=== PATIENT | male | born 1960 | race Caucasian/White ===

== ENCOUNTER 2016-11-24 04:32 | Inpatient (IN) | payer OTHER, MEDICARE ==
[2016-11-24 06:04] LABS: ABSOLUTE BASOPHILS # (AUTO) 0.1 10^3/uL (0.0-0.2); ABSOLUTE EOSINOPHILS # (AUTO) 0.2 10^3/uL (0.0-0.6); ABSOLUTE LYMPHOCYTES (AUTO) 0.9 10^3/uL (0.5-4.7); ABSOLUTE MONOCYTES (AUTO) 1.2 10^3/uL (0.1-1.4); ABSOLUTE NEUT (AUTO) 10.2 10^3/uL (1.7-8.2); BASOPHILS % (AUTO) 0.5 % (0-2); EOSINOPHILS % (AUTO) 1.8 % (0-6); HEMATOCRIT 37.8 % (37.9-51.0); HEMOGLOBIN 12.7 g/dL (13.5-17.0); HGB HCT DIFFERENCE 0.3; LYMPHOCYTES % (AUTO) 7.3 % (13-45); MEAN CORPUSCULAR HEMOGLOBIN 29.3 pg (27.0-33.4); MEAN CORPUSCULAR HGB CONC 33.5 g/dL (32.0-36.0); MEAN CORPUSCULAR VOLUME 88 fl (80-97); MONOCYTES % (AUTO) 9.5 % (3-13); RED BLOOD COUNT 4.32 10^6/uL (4.35-5.55); RED CELL DISTRIBUTION WIDTH 13.8 % (11.5-14.0); SEGMENTED NEUTROPHILS % (AUTO) 80.9 % (42-78); WHITE BLOOD COUNT 12.6 10^3/uL (4.0-10.5)
[2016-11-24 06:07] LABS: VENOUS BLOOD BASE EXCESS -3.1 mmol/L; VENOUS BLOOD HCO3 24.7 mmol/L (20-32); VENOUS BLOOD PH 7.26 (7.30-7.42)
[2016-11-24 06:14] LABS: ALANINE AMINOTRANSFERASE 39 U/L (21-72); ALBUMIN 3.9 g/dL (3.5-5.0); ALKALINE PHOSPHATASE 83 U/L (38-126); ANION GAP 16 (5-19); ASPARTATE AMINO TRANSFERASE 53 U/L (17-59); BILIRUBIN,DIRECT 0.6 mg/dL (0.0-0.4); BILIRUBIN,TOTAL 0.8 mg/dL (0.2-1.3); BLOOD UREA NITROGEN 69 mg/dL (7-20); CALCIUM 8.3 mg/dL (8.4-10.2); CARBON DIOXIDE 25 mmol/L (22-30); CHLORIDE 95 mmol/L (98-107); CREATININE RESULT 5.58 mg/dL (0.52-1.25); GLUCOSE 110 mg/dL (75-110); TOTAL PROTEIN 7.1 g/dL (6.3-8.2)
--- NOTE | 2016-11-24 06:22 | ER Document Report ---
ED Fall - General Mode of Arrival: Ambulatory Information source: Patient TRAVEL OUTSIDE OF THE [place] IN LAST 30 DAYS: No - HPI Occurred: Other - x2 days Where: Home Location of injury/pain: Foot - R, Neck Quality of pain: Achy, Sharp <RICHARD GOLDSMITH - Last Filed: 11/25/16 06:07> <TAB HESTER - Last Filed: 11/30/16 22:48> - General Chief Complaint: Syncope Stated Complaint: POSSIBLE HYPERTENSION Time Seen by Provider: 11/24/16 06:01 Notes: Patient is a 56-year-old male who presents to the emergency department today with complaints of a syncopal episode at home 2 days ago. Patient states that he believes he fell because he was hypotensive. Patient states that he has had falls in the past with a low blood pressure. Patient states his medication has not been adjusted in the last few days but that he was having a problem with very high blood pressure and with the medications he is now on his blood pressure seems to sometimes bottom out. Patient states he believes he was on the ground for 2 hours. Patient complains of right foot pain and neck pain. Patient complains of back pain as well which is chronic; patient denies any new pain since the fall in his back. (RICHARD GOLDSMITH) - Related data Allergies/Adverse Reactions: strawberry [[place]] Allergy (Verified 10/29/15 07:18) tomato [Tomato] Allergy (Verified 10/29/15 07:18) Home Medications: Current Home Medications Allopurinol [Zyloprim 100 mg Tablet] 100 mg PO DAILY 11/24/16 [History] Aspirin [Aspirin EC] 81 mg PO DAILY 11/24/16 [History] Clonidine HCl [Catapres 0.2 mg Tablet] 0.2 mg PO Q12 11/24/16 [History] Diazepam [Valium 5 mg Tablet] 5 mg PO BIDP PRN 11/24/16 [History] Gabapentin [Neurontin 300 mg Capsule] 300 mg PO Q8 11/24/16 [History] Oxycodone HCl [Oxycodone HCl ER] 15 mg PO 5XD 11/24/16 [History] Pravastatin Sodium [Pravachol] 80 mg PO QHS 11/24/16 [History] Venlafaxine HCl [Effexor Xr] 150 mg PO BID 11/24/16 [History] Past Medical History - General Information source: Patient, [facility] - Social History Smoking Status: Smoker,Current Status Unk Frequency of alcohol use: None Drug Abuse: None Lives with: Family Family History: Reviewed & Not Pertinent - Past Medical History Cardiac Medical History: Reports: Hx Heart Attack - X 2, Hx Hypercholesterolemia , Hx Hypertension Musculoskeltal Medical History: Reports Hx Gout Skin Medical History: Reports Hx Cellulitis Psychiatric Medical History: Reports: Hx Depression, Hx Post Traumatic Stress Disorder Past Surgical History: Reports: Hx Orthopedic Surgery - back surgery - Immunizations Hx Diphtheria, Pertussis, Tetanus Vaccination: Yes Hx Pneumococcal Vaccination: 05/31/09 <RICHARD GOLDSMITH - Last Filed: 11/25/16 06:07> Review of Systems - Review of Systems Constitutional: No symptoms reported EENT: No symptoms reported Cardiovascular: See HPI, Syncope, Other - hypotension Respiratory: No symptoms reported Gastrointestinal: No symptoms reported Genitourinary: No symptoms reported Male Genitourinary: No symptoms reported Musculoskeletal: See HPI, Back pain - complains of chronic back pain but states there is nothing new since the fall, Joint pain - right foot, Neck pain Skin: No symptoms reported Hematologic/Lymphatic: No symptoms reported Neurological/Psychological: No symptoms reported -: Yes All other systems reviewed and negative <RICHARD GOLDSMITH - Last Filed: 11/25/16 06:07> Physical Exam <RICHARD GOLDSMITH - Last Filed: 11/25/16 06:07> <TAB HESTER - Last Filed: 11/30/16 22:48> - Vital signs Vitals: Temp Pulse Resp BP Pulse Ox 98.3 F 96 20 88/43 L 94 11/24/16 05:09 11/24/16 05:09 11/24/16 05:09 11/24/16 05:09 11/24/16 05:09 - Notes Notes: Physical Exam: General: Alert, appears well. HEENT: Normocephalic. Atraumatic. PERRL. Extraocular movements intact. Oropharynx clear. Neck: Supple. Posterior cervical musculature tenderness with palpation. No midline tenderness. Respiratory: No respiratory distress. Clear and equal breath sounds bilaterally. Cardiovascular: Regular rate and rhythm. Abdominal: Normal Inspection. Non-tender. No distension. Normal Bowel Sounds. Back: Non-tender. No deformity or step off. Extremities: Moves all four extremities. Upper extremities: Normal inspection. Normal ROM. Lower extremities: Mild diffuse tenderness with palpation of the right foot. Neurological: Normal cognition. AAOx4. Normal speech. Psychological: Normal affect. Normal Mood. Skin: Warm. Dry. Normal color. (RICHARD GOLDSMITH) Course - Laboratory Result Diagrams: 11/25/16 04:45 11/24/16 05:45 <RICHARD GOLDSMITH - Last Filed: 11/25/16 06:07> - Laboratory Result Diagrams: 11/25/16 04:45 11/25/16 04:45 <TAB HESTER - Last Filed: 11/30/16 22:48> - Re-evaluation Re-evalutation: 11/24/16 10:05 Presents emerged from chief plan of fall yesterday states he lost conscious for 2 hours right foot pain dizzy and wheezing. Patient has multiple medical problems and he had a couple episodes and was passed out the past. Says that they have been trying to manage his elevated blood pressure and it has dropped a couple times. On ED arrival blood pressure 99/69 O2 sat of 100% 92 heart rate with a sinus rhythm on EKG. He is afebrile with a GCS of 15 and no neurological deficits. He complains of headache and neck pain which I did a CT of the head pupils are expiratory negative. Full cardiac examination and workup nonacute however he does have a BUN and creatinine of 69 and 5.58 with a normal potassium and he reports normal urine output and there is some blood in the urine but no infection. Last BUN and creatinine was from 12/30/2015 showing 23 and 1.10. This time I given him IV fluids and admit him to the hospital I spoke to Dr. Richards to do a further assessment and evaluation (TAB HESTER) - Vital Signs Vital signs: Temp Pulse Resp BP Pulse Ox 98.2 F 70 17 120/64 99 11/25/16 08:44 11/25/16 08:44 11/25/16 08:44 11/25/16 08:44 11/25/16 08:44 - Laboratory Laboratory results interpreted by me: 11/24/16 11/24/16 11/24/16 05:45 05:45 05:45 WBC 12.6 H RBC 4.32 L Hgb 12.7 L Hct 37.8 L Seg Neutrophils % 80.9 H Lymphocytes % 7.3 L Absolute Neutrophils 10.2 H VBG pH 7.26 L Sodium 136.0 L Chloride 95 L BUN 69 H Creatinine 5.58 H Est GFR ( Amer) 13 L Est GFR (Non-Af Amer) 11 L POC Glucose Calcium 8.3 L Direct Bilirubin 0.6 H Urine Protein Urine Blood 11/24/16 11/24/16 06:36 07:49 WBC RBC Hgb Hct Seg Neutrophils % Lymphocytes % Absolute Neutrophils VBG pH Sodium Chloride BUN Creatinine Est GFR ( Amer) Est GFR (Non-Af Amer) POC Glucose 111 H Calcium Direct Bilirubin Urine Protein 30 H Urine Blood MODERATE H - EKG Interpretation by Me Additional EKG results interpreted by me: 11/24/16 10:07 EKG interpreted by myself to reveal normal sinus rhythm at [address] segment elevation or depression (TAB HESTER) Critical Care Note - Critical Care Note Total time excluding time spent on procedures (mins): 65 <TAB HESTER - Last Filed: 11/30/16 22:48> Discharge <RICHARD GOLDSMITH - Last Filed: 11/25/16 06:07> - Discharge Admitting Provider: Hospitalist Unit Admitted: I[facility]U <TAB HESTER - Last Filed: 11/30/16 22:48> - Discharge Clinical Impression: acute syncope, acute renal failure Condition: Stable Disposition: ADMITTED INPATIENT Scribe Attestation: 11/24/16 10:07 I personally performed the services described in the documentation reviewed the documentation recorded by my scribe in my presence and it accurately and completely records my words and actions (TAB HESTER) Scribe Documentation - Scribe Written by Yuriye:: Elena Raza, 11/24/2016 1014 acting as scribe for :: Joshua <RICHARD GOLDSMITH - Last Filed: 11/25/16 06:07>
--- NOTE | 2016-11-24 06:22 | RADIOLOGY REPORT (SQ) ---
EXAM DESCRIPTION: CHEST SINGLE VIEW COMPLETED DATE/TIME: 11/24/2016 6:07 am REASON FOR STUDY: syncope COMPARISON: 11/19/2013. EXAM PARAMETERS: NUMBER OF VIEWS: One view. TECHNIQUE: Single frontal radiographic view of the chest acquired. RADIATION DOSE: NA LIMITATIONS: None. FINDINGS: LUNGS AND PLEURA: No opacities, masses or pneumothorax. No pleural effusion. Prominent in terstitium. MEDIASTINUM AND HILAR STRUCTURES: No masses. Contour normal. HEART AND VASCULAR STRUCTURES: Heart normal in size. Normal vasculature. BONES: No acute findings. HARDWARE: None in the chest. OTHER: No other significant finding. IMPRESSION: No acute cardiopulmonary findings. TECHNICAL DOCUMENTATION: JOB ID: [id number]
[2016-11-24 06:38] LABS: PROTHROMBIN TIME 15.3 SEC (11.4-15.4)
--- NOTE | 2016-11-24 07:53 | EKG REPORT ---
SEVERITY:- NORMAL ECG - SINUS RHYTHM : Confirmed by: Souleymane Farris 24-Nov-2016 07:52:24
--- NOTE | 2016-11-24 08:26 | RADIOLOGY REPORT (SQ) ---
EXAM DESCRIPTION: CT HEAD WITHOUT COMPLETED DATE/TIME: 11/24/2016 8:15 am REASON FOR STUDY: fall ? loc COMPARISON: 10/29/2015 TECHNIQUE: Axial images acquired through the brain without intravenous contrast. Images reviewed wi th bone, brain and subdural windows. Images stored on PACS. All CT scanners at this facility use dose modulation, iterative reconstruction, and/or weight based d osing when appropriate to reduce radiation dose to as low as reasonably achievable (ALARA). [facility]: Dose Right [facility]: CareDose [facility]: Dose Right [facility]: Teradose 4D [facility]: Smart [employer] RADIATION DOSE: Up-to-date CT equipment and radiation dose reduction techniques were employed. CTDIv ol: 64.6 mGy. DLP: 1163 mGy-cm. mGy. LIMITATIONS: None. FINDINGS: VENTRICLES: Normal size and contour. CEREBRUM: No masses. No hemorrhage. No midline shift. Normal brown/white matter differentiation. N o evidence for acute infarction. CEREBELLUM: No masses. No hemorrhage. No alteration of density. No evidence for acute infarction. EXTRAAXIAL SPACES: No fluid collections. No masses. ORBITS AND GLOBE: No intra- or extraconal masses. Normal contour of globe without masses. CALVARIUM: No fracture. PARANASAL SINUSES: No fluid or mucosal thickening. SOFT TISSUES: No mass or hematoma. OTHER: No other significant finding. IMPRESSION: NORMAL BRAIN CT WITHOUT CONTRAST. TECHNICAL DOCUMENTATION: JOB ID: [id number] Quality ID # [id number]: Final reports with documentation of one or more dose reduction techniques (e.g., Au tomated exposure control, adjustment of the mA and/or kV according to patient size, use of iterative reconstruction technique) 2010 [employer]- All Rights Reserved
--- NOTE | 2016-11-24 08:28 | RADIOLOGY REPORT (SQ) ---
EXAM DESCRIPTION: CT CERVICAL SPINE WITHOUT COMPLETED DATE/TIME: 11/24/2016 8:15 am REASON FOR STUDY: fall loc COMPARISON: 10/29/2015 TECHNIQUE: Axial images acquired through the cervical spine without intravenous contrast. Images re viewed with lung, soft tissue and bone windows. Reconstructed coronal and sagittal MPR images review ed. Images stored on PACS. All CT scanners at this facility use dose modulation, iterative reconstruction, and/or weight based d osing when appropriate to reduce radiation dose to as low as reasonably achievable (ALARA). [facility]: Dose Right [facility]: CareDose [facility]: Dose Right [facility]: Teradose 4D [facility]: Smart [employer] RADIATION DOSE: Up-to-date CT equipment and radiation dose reduction techniques were employed. CTDIv ol: 22.6 - 32.5 mGy. DLP: 913 mGy-cm. mGy. LIMITATIONS: None. FINDINGS: ALIGNMENT: Anatomic. MINERALIZATION: Normal. VERTEBRAL BODIES: No fractures or dislocation. DISCS: Multilevel disc space narrowing with osteophytes. FACETS, LATERAL MASSES, POSTERIOR ELEMENTS: Facet arthropathy. No fractures. No dislocation. No ac corine findings. HARDWARE: None in the spine. VISUALIZED RIBS: No fractures. LUNG APICES AND SOFT TISSUES: No significant or acute findings. OTHER: No other significant finding. IMPRESSION: CHRONIC DEGENERATIVE CHANGES. NO ACUTE FINDINGS. TECHNICAL DOCUMENTATION: JOB ID: [id number] Quality ID # [id number]: Final reports with documentation of one or more dose reduction techniques (e.g., Au tomated exposure control, adjustment of the mA and/or kV according to patient size, use of iterative reconstruction technique) 2010 [employer]- All Rights Reserved
--- NOTE | 2016-11-24 08:42 | RADIOLOGY REPORT (SQ) ---
EXAM DESCRIPTION: ANKLE RIGHT COMPLETE COMPLETED DATE/TIME: 11/24/2016 8:28 am REASON FOR STUDY: fall pain COMPARISON: None. NUMBER OF VIEWS: Three views. TECHNIQUE: AP, lateral, and oblique radiographic images acquired of the right ankle. LIMITATIONS: None. FINDINGS: MINERALIZATION: Normal. BONES: No acute fracture or dislocation. No worrisome bone lesions. JOINTS: Ankle mortise intact. SOFT TISSUES: No soft tissue swelling. No foreign body. OTHER: No other significant finding. IMPRESSION: No acute fractures identified. TECHNICAL DOCUMENTATION: JOB ID: [id number] [employer]- All Rights Reserved
--- NOTE | 2016-11-24 08:53 | RADIOLOGY REPORT (SQ) ---
EXAM DESCRIPTION: FOOT RIGHT COMPLETE COMPLETED DATE/TIME: 11/24/2016 8:28 am REASON FOR STUDY: fall pain COMPARISON: None. NUMBER OF VIEWS: Three views. TECHNIQUE: AP, lateral and oblique radiographic images acquired of the right foot. LIMITATIONS: None. FINDINGS: MINERALIZATION: Normal. BONES: No acute fracture or dislocation. No worrisome bone lesions. JOINTS: No effusions. SOFT TISSUES: No metallic foreign bodies. OTHER: No other significant finding. IMPRESSION: No acute fractures identified. TECHNICAL DOCUMENTATION: JOB ID: [id number] [employer]- All Rights Reserved
[2016-11-24 08:55] LABS: AMORPHOUS SEDIMENT,URINE TRACE /HPF; APPEARANCE,URINE SLIGHTLY-CLOUDY; BILIRUBIN,URINE NEGATIVE (NEGATIVE); GLUCOSE, URINE NEGATIVE (NEGATIVE); KETONES,URINE NEGATIVE (NEGATIVE); LEUKOCYTE ESTERASE,URINE NEGATIVE (NEGATIVE); NITRITE,URINE NEGATIVE (NEGATIVE); PROTEIN,URINE 30 mg/dL (NEGATIVE); URINE SPECIFIC GRAVITY 1.012; UROBILINOGEN,URINE NEGATIVE mg/dL (<2.0)
[2016-11-24] MEDS ORDERED: NORMAL SALINE 1000 ML 1,000 ML IV ONE ×2 (10:03→17:37)
[2016-11-24] MEDS ORDERED: NORMAL SALINE 1000 ML 1,000 ML IV PRN (10:43)
[2016-11-24] MEDS ORDERED: ONDANSETRON HCL INJ/PF 4 MG/2 ML SDV IV PRN (10:43)
[2016-11-24] MEDS ORDERED: ACETAMINOPHEN 325 MG TABLET PO PRN (10:43)
[2016-11-24] MEDS ORDERED: DIAZEPAM 5 MG TABLET PO PRN (10:47)
--- NOTE | 2016-11-24 10:54 | PDOC H&P ---
History of Present Illness Admission Date/PCP: 11/24/16 10:10 JOSE MANUEL LOMBARDI MD History of Present Illness: Patient is a 56-year-old male who presents to the emergency department today with complaints of a syncopal episode at home 2 days ago. Patient states that he believes he fell because he was hypotensive. Patient states that he has had falls in the past with a low blood pressure. Patient states his medication has not been adjusted in the last few days but that he was having a problem with very high blood pressure and with the medications he is now on his blood pressure seems to sometimes bottom out. Patient states he believes he was on the ground for 2 hours. Patient complains of right foot pain and neck pain. Patient complains of back pain as well which is chronic; patient denies any new pain since the fall in his back. Review of previous medications indicate that patient's creatinine was 1.10 on 12/30/2015. Medications have not been reconciled. Past Medical History Cardiac Medical History: Reports: Myocardial Infarction - X 2, Hyperlipidema, Hypertension Musculoskeltal Medical History: Reports: Gout Psychiatric Medical History: Reports: Depression, Post Traumatic Stress Disorder Past Surgical History Past Surgical History: Reports: Orthopedic Surgery - back surgery Social History Information Source: Patient Lives with: Family Smoking Status: Current Every Day Smoker Frequency of Alcohol Use: Rare Hx Recreational Drug Use: No - Advance Directive Resuscitation Status: Full Code Family History Family History: Hypertension Parental Family History Reviewed: Yes Children Family History Reviewed: Yes Sibling(s) Family History Reviewed.: Yes Medication/Allergy Allergies/Adverse Reactions: strawberry [[place]] Allergy (Verified 10/29/15 07:18) tomato [Tomato] Allergy (Verified 10/29/15 07:18) Review of Systems Constitutional: ABSENT: chills, fever(s), headache(s), weight gain, weight loss Eyes: ABSENT: visual disturbances Ears: ABSENT: hearing changes Cardiovascular: ABSENT: chest pain, dyspnea on exertion, edema, orthropnea, palpitations Respiratory: ABSENT: cough, hemoptysis Gastrointestinal: ABSENT: abdominal pain, constipation, diarrhea, hematemesis, hematochezia, nausea, vomiting Genitourinary: ABSENT: dysuria, hematuria Musculoskeletal: ABSENT: joint swelling Integumentary: ABSENT: rash, wounds Neurological: PRESENT: dizziness, syncope. ABSENT: abnormal gait, abnormal speech, confusion, focal weakness Psychiatric: ABSENT: anxiety, depression, homidical ideation, suicidal ideation Endocrine: ABSENT: cold intolerance, heat intolerance, polydipsia, polyuria Hematologic/Lymphatic: ABSENT: easy bleeding, easy bruising Physical Exam Vital Signs: Temp Pulse Resp BP Pulse Ox 98.3 F 96 13 109/60 100 11/24/16 05:09 11/24/16 05:09 11/24/16 08:33 11/24/16 09:00 11/24/16 09:01 PHYSICAL EXAM: GENERAL: Appears well, no acute distress HEENT: Normocephalic, no scleral icterus, conjunctiva clear, EOEM intact, PERRLA , moist mucous membranes NECK: trachea midline, no thyromegally RESPIRATORY: Clear to auscultation, no wheezes/rhonchi CARDIAC: Regular rate and rhythm, no murmur/keena/rub ABDOMEN: Soft, no distension, no tenderness, no guarding, normal bowel sounds, negative Andre sign RECTAL: deferred : deferred EXTREMITIES: No edema, cyanosis, clubbing MUSCULOSKELETAL: No joint swelling or deformity VASCULAR: normal peripheral pulses NEUROLOGIC: Alert, oriented to person/place/time, normal speech, cranial nerves grossly intact, 5/5 strength in all extremities, tactile sensation intact in all extremities SKIN: No rash, no wounds, no worrisome skin lesions PSYCHIATRIC: Normal mood, normal affect Results Laboratory Results: Labs- All tests 24 hr 11/24/16 11/24/16 11/24/16 05:45 05:45 05:45 WBC 12.6 H RBC 4.32 L Hgb 12.7 L Hct 37.8 L MCV 88 MCH 29.3 MCHC 33.5 RDW 13.8 Plt Count 226 Seg Neutrophils % 80.9 H Lymphocytes % 7.3 L Monocytes % 9.5 Eosinophils % 1.8 Basophils % 0.5 Absolute Neutrophils 10.2 H Absolute Lymphocytes 0.9 Absolute Monocytes 1.2 Absolute Eosinophils 0.2 Absolute Basophils 0.1 PT 15.3 INR 1.13 VBG pH VBG pCO2 VBG HCO3 VBG Base Excess Sodium 136.0 L Potassium 4.0 Chloride 95 L Carbon Dioxide 25 Anion Gap 16 BUN 69 H Creatinine 5.58 H Est GFR ( Amer) 13 L Est GFR (Non-Af Amer) 11 L Glucose 110 POC Glucose Lactic Acid Calcium 8.3 L Total Bilirubin 0.8 Direct Bilirubin 0.6 H Indirect Bilirubin Not Reportable Neonat Total Bilirubin Not Reportable AST 53 ALT 39 Alkaline Phosphatase 83 Total Protein 7.1 Albumin 3.9 Urine Color Urine Appearance Urine pH Ur Specific [place] Urine Protein Urine Glucose (UA) Urine Ketones Urine Blood Urine Nitrite Urine Bilirubin Urine Urobilinogen Ur Leukocyte Esterase Urine WBC (Auto) Urine RBC (Auto) U Hyaline Cast (Auto) Urine Bacteria (Auto) Squamous Epi Cells Auto Amorphous Sediment Auto Urine Mucus (Auto) Urine Ascorbic Acid 11/24/16 11/24/16 11/24/16 05:45 05:45 06:36 WBC RBC Hgb Hct MCV MCH MCHC RDW Plt Count Seg Neutrophils % Lymphocytes % Monocytes % Eosinophils % Basophils % Absolute Neutrophils Absolute Lymphocytes Absolute Monocytes Absolute Eosinophils Absolute Basophils PT INR VBG pH 7.26 L VBG pCO2 56.0 VBG HCO3 24.7 VBG Base Excess -3.1 Sodium Potassium Chloride Carbon Dioxide Anion Gap BUN Creatinine Est GFR ( Amer) Est GFR (Non-Af Amer) Glucose POC Glucose 111 H Lactic Acid 1.0 Calcium Total Bilirubin Direct Bilirubin Indirect Bilirubin Neonat Total Bilirubin AST ALT Alkaline Phosphatase Total Protein Albumin Urine Color Urine Appearance Urine pH Ur Specific [place] Urine Protein Urine Glucose (UA) Urine Ketones Urine Blood Urine Nitrite Urine Bilirubin Urine Urobilinogen Ur Leukocyte Esterase Urine WBC (Auto) Urine RBC (Auto) U Hyaline Cast (Auto) Urine Bacteria (Auto) Squamous Epi Cells Auto Amorphous Sediment Auto Urine Mucus (Auto) Urine Ascorbic Acid 11/24/16 07:49 WBC RBC Hgb Hct MCV MCH MCHC RDW Plt Count Seg Neutrophils % Lymphocytes % Monocytes % Eosinophils % Basophils % Absolute Neutrophils Absolute Lymphocytes Absolute Monocytes Absolute Eosinophils Absolute Basophils PT INR VBG pH VBG pCO2 VBG HCO3 VBG Base Excess Sodium Potassium Chloride Carbon Dioxide Anion Gap BUN Creatinine Est GFR ( Amer) Est GFR (Non-Af Amer) Glucose POC Glucose Lactic Acid Calcium Total Bilirubin Direct Bilirubin Indirect Bilirubin Neonat Total Bilirubin AST ALT Alkaline Phosphatase Total Protein Albumin Urine Color YELLOW Urine Appearance SLIGHTLY-CLOUDY Urine pH 5.0 Ur Specific [place] 1.012 Urine Protein 30 H Urine Glucose (UA) NEGATIVE Urine Ketones NEGATIVE Urine Blood MODERATE H Urine Nitrite NEGATIVE Urine Bilirubin NEGATIVE Urine Urobilinogen NEGATIVE Ur Leukocyte Esterase NEGATIVE Urine WBC (Auto) 5 Urine RBC (Auto) 1 U Hyaline Cast (Auto) 18 Urine Bacteria (Auto) TRACE Squamous Epi Cells Auto <1 Amorphous Sediment Auto TRACE Urine Mucus (Auto) RARE Urine Ascorbic Acid NEGATIVE EKG Comments: Normal sinus rhythm. Impressions: Chest X-Ray 11/24/16 05:34 IMPRESSION: No acute cardiopulmonary findings. Cervical Spine CT 11/24/16 06:22 IMPRESSION: CHRONIC DEGENERATIVE CHANGES. NO ACUTE FINDINGS. Head CT 11/24/16 06:22 IMPRESSION: NORMAL BRAIN CT WITHOUT CONTRAST. Ankle X-Ray 11/24/16 06:23 IMPRESSION: No acute fractures identified. Foot X-Ray 11/24/16 06:23 IMPRESSION: No acute fractures identified. Assessment & Plan - Diagnosis (1) Syncope Is this a current diagnosis for this admission?: YesPlan: Given patient's multiple blood pressure medications and current hypotension I would imagine that he has orthostatic syncope. I will hold blood pressure medicines. Monitor on telemetry. Check serial cardiac enzymes. Check orthostatic blood pressure readings. (2) Hypotension Is this a current diagnosis for this admission?: YesPlan: Hold blood pressure medications. IV fluids. (3) Acute kidney injury Is this a current diagnosis for this admission?: YesPlan: Hold blood pressure medicine. Administer IV fluids. Check renal ultrasound. Repeat labs in the morning. (4) Hypertension Is this a current diagnosis for this admission?: Yes - Time Time Spent: 50 to 70 Minutes Anticipated discharge: Home Within: within 72 hours
[2016-11-24 12:40] LABS: TROPONIN I < 0.012 ng/mL
[2016-11-24] MEDS: OXYCODONE HCL IR 5 MG TABLET PO PRN ×2 (13:30→21:20)
[2016-11-24] MEDS: HEPARIN SOD (PORCINE) 5,000 UNIT/ML 1 ML SYRINGE SUBCUT SCH ×2 (15:37→21:22)
[2016-11-24 18:26] LABS: TROPONIN I < 0.012 ng/mL
[2016-11-24] MEDS: NORMAL SALINE 1000 ML 1,000 ML IV PRN (21:10)
[2016-11-24] MEDS: VENLAFAXINE HCL 75 MG CAP.SR.24H PO SCH (21:21)
[2016-11-24] MEDS: GABAPENTIN 300 MG CAPSULE PO SCH (21:22)
[2016-11-24] MEDS ORDERED: ATORVASTATIN CALCIUM 20 MG TABLET PO SCH (22:00)
--- NOTE | 2016-11-24 23:14 | RADIOLOGY REPORT (SQ) ---
EXAM DESCRIPTION: U/S RETROPERITON LTD COMPLETED DATE/TIME: 11/24/2016 11:05 pm REASON FOR STUDY: ANIVAL COMPARISON: None. TECHNIQUE: Dynamic and static grayscale images acquired of the kidneys and bladder and recorded on P ACS. Additional selected color Doppler and spectral images recorded. LIMITATIONS: None. FINDINGS: RIGHT KIDNEY: Normal size. Normal echogenicity. No solid or suspicious masses. No h ydronephrosis. No calcifications. Large cyst is seen off the lateral mid pole measuring 8.0 x 8.6 x 6.1 cm LEFT KIDNEY: Normal size. Normal echogenicity. No solid or suspicious masses. No hydronephrosi s. No calcifications. Cyst seen off the mid pole medially measuring 2.4 x 2.0 x 1.6 cm. BLADDER: No masses. OTHER FINDINGS: No other significant finding. IMPRESSION: Bilateral renal cyst off the midpole. No nephrolithiasis. No hydronephrosis. TECHNICAL DOCUMENTATION: JOB ID: [id number] [employer]- All Rights Reserved
[2016-11-25 00:32] LABS: TROPONIN I < 0.012 ng/mL
[2016-11-25] MEDS: NORMAL SALINE 1000 ML 1,000 ML IV PRN (02:10)
[2016-11-25] MEDS: OXYCODONE HCL IR 5 MG TABLET PO PRN (03:55)
[2016-11-25] MEDS: GABAPENTIN 300 MG CAPSULE PO SCH (05:29)
[2016-11-25] MEDS: HEPARIN SOD (PORCINE) 5,000 UNIT/ML 1 ML SYRINGE SUBCUT SCH (05:30)
[2016-11-25 05:58] LABS: ABSOLUTE BASOPHILS # (AUTO) 0.1 10^3/uL (0.0-0.2); ABSOLUTE EOSINOPHILS # (AUTO) 0.3 10^3/uL (0.0-0.6); ABSOLUTE LYMPHOCYTES (AUTO) 1.4 10^3/uL (0.5-4.7); ABSOLUTE MONOCYTES (AUTO) 1.3 10^3/uL (0.1-1.4); ABSOLUTE NEUT (AUTO) 6.4 10^3/uL (1.7-8.2); BASOPHILS % (AUTO) 0.7 % (0-2); EOSINOPHILS % (AUTO) 3.2 % (0-6); HEMATOCRIT 34.4 % (37.9-51.0); HEMOGLOBIN 11.9 g/dL (13.5-17.0); HGB HCT DIFFERENCE 1.3; LYMPHOCYTES % (AUTO) 15.2 % (13-45); MEAN CORPUSCULAR HGB CONC 34.6 g/dL (32.0-36.0); MEAN CORPUSCULAR VOLUME 87 fl (80-97); MONOCYTES % (AUTO) 13.2 % (3-13); RED BLOOD COUNT 3.97 10^6/uL (4.35-5.55); SEGMENTED NEUTROPHILS % (AUTO) 67.7 % (42-78); WHITE BLOOD COUNT 9.5 10^3/uL (4.0-10.5)
[2016-11-25 06:14] LABS: ANION GAP 13 (5-19); CALCIUM 8.7 mg/dL (8.4-10.2); CARBON DIOXIDE 23 mmol/L (22-30); CHLORIDE 103 mmol/L (98-107); CREATINE KINASE 1344 U/L (55-170); CREATININE RESULT 1.98 mg/dL (0.52-1.25); GLUCOSE 94 mg/dL (75-110); POTASSIUM 3.8 mmol/L (3.6-5.0); SODIUM 138.7 mmol/L (137-145)
[2016-11-25 06:18] LABS: BLOOD UREA NITROGEN 40 mg/dL (7-20)
[2016-11-25 08:04] VITALS: BP 120/64
--- NOTE | 2016-11-25 08:09 | PDOC DISCHARGE SUMMARY ---
General - Admit/Disc Date/PCP Admission Date/Primary Care Provider: 11/24/16 10:44 JOSE MANUEL LOMBARDI MD Discharge Date: 11/25/16 - Discharge Diagnosis (1) Syncope Is this a current diagnosis for this admission?: Yes (2) Hypotension Is this a current diagnosis for this admission?: Yes (3) Acute kidney injury Is this a current diagnosis for this admission?: Yes (4) Hypertension Is this a current diagnosis for this admission?: Yes - Additional Information Resuscitation Status: Full Code Discharge Diet: Cardiac Discharge Activity: Activity As Tolerated Home Medications: Allopurinol [Zyloprim 100 mg Tablet] 100 mg PO DAILY 11/24/16 Aspirin [Aspirin EC] 81 mg PO DAILY 11/24/16 Clonidine HCl [Catapres 0.2 mg Tablet] 0.2 mg PO Q12 11/24/16 Diazepam [Valium 5 mg Tablet] 5 mg PO BIDP PRN 11/24/16 Gabapentin [Neurontin 300 mg Capsule] 300 mg PO Q8 11/24/16 Oxycodone HCl [Oxycodone HCl ER] 15 mg PO 5XD 11/24/16 Pravastatin Sodium [Pravachol] 80 mg PO QHS 11/24/16 Venlafaxine HCl [Effexor Xr] 150 mg PO BID 11/24/16 History of Present Illness Patient complains of: Passing out History of Present Illness: Patient is a 56-year-old male who presents to the emergency department today with complaints of a syncopal episode at home 2 days ago. Patient states that he believes he fell because he was hypotensive. Patient states that he has had falls in the past with a low blood pressure. Patient states his medication has not been adjusted in the last few days but that he was having a problem with very high blood pressure and with the medications he is now on his blood pressure seems to sometimes bottom out. Patient states he believes he was on the ground for 2 hours. Patient complains of right foot pain and neck pain. Patient complains of back pain as well which is chronic; patient denies any new pain since the fall in his back. Review of previous medications indicate that patient's creatinine was 1.10 on 12/30/2015. Hospital Course Hospital Course: Patient was admitted for evaluation of syncope and for treatment of acute kidney injury and hypotension. Patient's blood pressure medicines were discontinued on admission. He was given aggressive fluid resuscitation. Blood pressure normalized and kidney function greatly improved. Renal ultrasound showed no acute process, but bilateral renal cyst. Telemetry monitoring showed no dysrhythmia. CPK level improved. Troponin remained negative. Patient was discharged home in stable condition. He is advised to discontinue lisinopril/ HCT, Toprol-XL. He is to continue clonidine. He is to follow-up with his primary care provider as soon as possible for reevaluation and repeat lab work. Physical Exam Vital Signs: Temp Pulse Resp BP Pulse Ox 98.2 F 70 17 120/64 99 11/25/16 07:44 11/25/16 07:44 11/25/16 07:44 11/25/16 07:44 11/25/16 07:44 Intake & Output 11/24/16 11/25/16 11/26/16 06:59 06:59 06:59 Intake Total 4374 Balance 4374 Weight 105.2 kg Results Laboratory Results: 11/25/16 04:45 11/25/16 04:45 11/25/16 11/25/16 04:45 04:45 WBC 9.5 RBC 3.97 L Hgb 11.9 L Hct 34.4 L MCV 87 MCH 30.0 MCHC 34.6 RDW 14.0 Plt Count 174 Seg Neutrophils % 67.7 Lymphocytes % 15.2 Monocytes % 13.2 H Eosinophils % 3.2 Basophils % 0.7 Absolute Neutrophils 6.4 Absolute Lymphocytes 1.4 Absolute Monocytes 1.3 Absolute Eosinophils 0.3 Absolute Basophils 0.1 Sodium 138.7 Potassium 3.8 Chloride 103 Carbon Dioxide 23 Anion Gap 13 BUN 40 H D Creatinine 1.98 H Est GFR ( Amer) 42 L Est GFR (Non-Af Amer) 35 L Glucose 94 Calcium 8.7 11/24/16 11/24/16 11/24/16 12:02 12:02 17:46 Creatine Kinase 2390 H 2446 H CK-MB (CK-2) 28.50 H Troponin I < 0.012 11/24/16 11/24/16 11/24/16 17:46 23:57 23:57 Creatine Kinase 1597 H CK-MB (CK-2) 23.50 H 13.70 H Troponin I < 0.012 < 0.012 11/25/16 04:45 Creatine Kinase 1344 H CK-MB (CK-2) Troponin I Labs- Entire Visit 11/24/16 11/24/16 11/24/16 05:45 05:45 05:45 WBC 12.6 H RBC 4.32 L Hgb 12.7 L Hct 37.8 L MCV 88 MCH 29.3 MCHC 33.5 RDW 13.8 Plt Count 226 Seg Neutrophils % 80.9 H Lymphocytes % 7.3 L Monocytes % 9.5 Eosinophils % 1.8 Basophils % 0.5 Absolute Neutrophils 10.2 H Absolute Lymphocytes 0.9 Absolute Monocytes 1.2 Absolute Eosinophils 0.2 Absolute Basophils 0.1 PT 15.3 INR 1.13 VBG pH VBG pCO2 VBG HCO3 VBG Base Excess Sodium 136.0 L Potassium 4.0 Chloride 95 L Carbon Dioxide 25 Anion Gap 16 BUN 69 H Creatinine 5.58 H Est GFR ( Amer) 13 L Est GFR (Non-Af Amer) 11 L Glucose 110 POC Glucose Lactic Acid Calcium 8.3 L Total Bilirubin 0.8 Direct Bilirubin 0.6 H Indirect Bilirubin Not Reportable Neonat Total Bilirubin Not Reportable AST 53 ALT 39 Alkaline Phosphatase 83 Creatine Kinase CK-MB (CK-2) Troponin I Total Protein 7.1 Albumin 3.9 Urine Color Urine Appearance Urine pH Ur Specific [place] Urine Protein Urine Glucose (UA) Urine Ketones Urine Blood Urine Nitrite Urine Bilirubin Urine Urobilinogen Ur Leukocyte Esterase Urine WBC (Auto) Urine RBC (Auto) U Hyaline Cast (Auto) Urine Bacteria (Auto) Squamous Epi Cells Auto Amorphous Sediment Auto Urine Mucus (Auto) Urine Ascorbic Acid 11/24/16 11/24/16 11/24/16 05:45 05:45 06:36 WBC RBC Hgb Hct MCV MCH MCHC RDW Plt Count Seg Neutrophils % Lymphocytes % Monocytes % Eosinophils % Basophils % Absolute Neutrophils Absolute Lymphocytes Absolute Monocytes Absolute Eosinophils Absolute Basophils PT INR VBG pH 7.26 L VBG pCO2 56.0 VBG HCO3 24.7 VBG Base Excess -3.1 Sodium Potassium Chloride Carbon Dioxide Anion Gap BUN Creatinine Est GFR ( Amer) Est GFR (Non-Af Amer) Glucose POC Glucose 111 H Lactic Acid 1.0 Calcium Total Bilirubin Direct Bilirubin Indirect Bilirubin Neonat Total Bilirubin AST ALT Alkaline Phosphatase Creatine Kinase CK-MB (CK-2) Troponin I Total Protein Albumin Urine Color Urine Appearance Urine pH Ur Specific [place] Urine Protein Urine Glucose (UA) Urine Ketones Urine Blood Urine Nitrite Urine Bilirubin Urine Urobilinogen Ur Leukocyte Esterase Urine WBC (Auto) Urine RBC (Auto) U Hyaline Cast (Auto) Urine Bacteria (Auto) Squamous Epi Cells Auto Amorphous Sediment Auto Urine Mucus (Auto) Urine Ascorbic Acid 11/24/16 11/24/16 11/24/16 07:49 12:02 12:02 WBC RBC Hgb Hct MCV MCH MCHC RDW Plt Count Seg Neutrophils % Lymphocytes % Monocytes % Eosinophils % Basophils % Absolute Neutrophils Absolute Lymphocytes Absolute Monocytes Absolute Eosinophils Absolute Basophils PT INR VBG pH VBG pCO2 VBG HCO3 VBG Base Excess Sodium Potassium Chloride Carbon Dioxide Anion Gap BUN Creatinine Est GFR ( Amer) Est GFR (Non-Af Amer) Glucose POC Glucose Lactic Acid Calcium Total Bilirubin Direct Bilirubin Indirect Bilirubin Neonat Total Bilirubin AST ALT Alkaline Phosphatase Creatine Kinase 2390 H CK-MB (CK-2) 28.50 H Troponin I < 0.012 Total Protein Albumin Urine Color YELLOW Urine Appearance SLIGHTLY-CLOUDY Urine pH 5.0 Ur Specific [place] 1.012 Urine Protein 30 H Urine Glucose (UA) NEGATIVE Urine Ketones NEGATIVE Urine Blood MODERATE H Urine Nitrite NEGATIVE Urine Bilirubin NEGATIVE Urine Urobilinogen NEGATIVE Ur Leukocyte Esterase NEGATIVE Urine WBC (Auto) 5 Urine RBC (Auto) 1 U Hyaline Cast (Auto) 18 Urine Bacteria (Auto) TRACE Squamous Epi Cells Auto <1 Amorphous Sediment Auto TRACE Urine Mucus (Auto) RARE Urine Ascorbic Acid NEGATIVE 11/24/16 11/24/16 11/24/16 17:46 17:46 23:57 WBC RBC Hgb Hct MCV MCH MCHC RDW Plt Count Seg Neutrophils % Lymphocytes % Monocytes % Eosinophils % Basophils % Absolute Neutrophils Absolute Lymphocytes Absolute Monocytes Absolute Eosinophils Absolute Basophils PT INR VBG pH VBG pCO2 VBG HCO3 VBG Base Excess Sodium Potassium Chloride Carbon Dioxide Anion Gap BUN Creatinine Est GFR ( Amer) Est GFR (Non-Af Amer) Glucose POC Glucose Lactic Acid Calcium Total Bilirubin Direct Bilirubin Indirect Bilirubin Neonat Total Bilirubin AST ALT Alkaline Phosphatase Creatine Kinase 2446 H 1597 H CK-MB (CK-2) 23.50 H Troponin I < 0.012 Total Protein Albumin Urine Color Urine Appearance Urine pH Ur Specific [place] Urine Protein Urine Glucose (UA) Urine Ketones Urine Blood Urine Nitrite Urine Bilirubin Urine Urobilinogen Ur Leukocyte Esterase Urine WBC (Auto) Urine RBC (Auto) U Hyaline Cast (Auto) Urine Bacteria (Auto) Squamous Epi Cells Auto Amorphous Sediment Auto Urine Mucus (Auto) Urine Ascorbic Acid 11/24/16 11/25/16 11/25/16 23:57 04:45 04:45 WBC 9.5 RBC 3.97 L Hgb 11.9 L Hct 34.4 L MCV 87 MCH 30.0 MCHC 34.6 RDW 14.0 Plt Count 174 Seg Neutrophils % 67.7 Lymphocytes % 15.2 Monocytes % 13.2 H Eosinophils % 3.2 Basophils % 0.7 Absolute Neutrophils 6.4 Absolute Lymphocytes 1.4 Absolute Monocytes 1.3 Absolute Eosinophils 0.3 Absolute Basophils 0.1 PT INR VBG pH VBG pCO2 VBG HCO3 VBG Base Excess Sodium 138.7 Potassium 3.8 Chloride 103 Carbon Dioxide 23 Anion Gap 13 BUN 40 H D Creatinine 1.98 H Est GFR ( Amer) 42 L Est GFR (Non-Af Amer) 35 L Glucose 94 POC Glucose Lactic Acid Calcium 8.7 Total Bilirubin Direct Bilirubin Indirect Bilirubin Neonat Total Bilirubin AST ALT Alkaline Phosphatase Creatine Kinase 1344 H CK-MB (CK-2) 13.70 H Troponin I < 0.012 Total Protein Albumin Urine Color Urine Appearance Urine pH Ur Specific [place] Urine Protein Urine Glucose (UA) Urine Ketones Urine Blood Urine Nitrite Urine Bilirubin Urine Urobilinogen Ur Leukocyte Esterase Urine WBC (Auto) Urine RBC (Auto) U Hyaline Cast (Auto) Urine Bacteria (Auto) Squamous Epi Cells Auto Amorphous Sediment Auto Urine Mucus (Auto) Urine Ascorbic Acid Impressions: Renal Ultrasound 11/24/16 00:00 IMPRESSION: Bilateral renal cyst off the midpole. No nephrolithiasis. No hydronephrosis. Chest X-Ray 11/24/16 05:34 IMPRESSION: No acute cardiopulmonary findings. Cervical Spine CT 11/24/16 06:22 IMPRESSION: CHRONIC DEGENERATIVE CHANGES. NO ACUTE FINDINGS. Head CT 11/24/16 06:22 IMPRESSION: NORMAL BRAIN CT WITHOUT CONTRAST. Ankle X-Ray 11/24/16 06:23 IMPRESSION: No acute fractures identified. Foot X-Ray 11/24/16 06:23 IMPRESSION: No acute fractures identified. Qualifiers PATEINT BEING DISCHARGED WITH ANY OF THE FOLLOWING DIAGNOSIS?: No Plan Time Spent: Less than 30 Minutes
[2016-11-25] MEDS: VENLAFAXINE HCL 75 MG CAP.SR.24H PO SCH (09:06)
[2016-11-25] MEDS ORDERED: ASPIRIN 81 MG TABLET, ENT COATED PO SCH (10:00)
== END 2016-11-25 11:30 | disposition home or self-care (01) | DRG 683 ==
LOC: ER 04:32 → UNDOADMIN 10:10 → EH 10:10 → 3N 10:44 → EH 11:49
PROVIDERS: ADMIT Family Medicine; ATTEND Family Medicine
DX: N17.9 Acute kidney failure, unspecified (principal); M62.82 Rhabdomyolysis; I10 Essential (primary) hypertension; I95.9 Hypotension, unspecified; M54.9 Dorsalgia, unspecified; G89.29 Other chronic pain; E78.5 Hyperlipidemia, unspecified; I25.2 Old myocardial infarction; M10.9 Gout, unspecified; F43.10 Post-traumatic stress disorder, unspecified; Z91.018 Allergy to other foods; Z79.899 Other long term (current) drug therapy; Z91.81 History of falling
CPT/HCPCS: 36415; 70450; 71010; 72125; 76775; 80048; 80053; 81001; 82550; 82553; 82803; 82962; 83605; 84484; 85025; 85610; 87040; 87086; 93005; 93010; 99291; J1644; J3490; J7030